=== PATIENT | female | born 1970 | race Caucasian/White ===

== ENCOUNTER 2025-06-22 07:45 | Day surgery (SDC) | payer BC ==
[~2025-06-22 07:45] MED LIST: Sodium Chloride 0.9% 10 ML Syringe FLUSH PRN
[2025-06-22] MEDS ORDERED: Propofol 200 MG/20 ML SDV IV ONE (07:46)
[2025-06-22] MEDS: Lactated Ringers 1,000 ML IV SCH (08:33)
== END 2025-06-22 11:00 | disposition home or self-care (01) ==
LOC: FB.SDS 07:45
PROVIDERS: ATTEND Surgery
DX: Z12.11 Encounter for screening for malignant neoplasm of colon (principal)
CPT/HCPCS: 00812; 45378; A9270; J2003; J2704; J7120